=== PATIENT | female | born 1990 | race Caucasian/White ===

== ENCOUNTER → 2017-03-21 | Outpatient (CLI) | payer OTHER | END | disposition home or self-care (01) | LOC: C.PAPS 16:27 | PROVIDERS: ATTEND Obstetrics & Gynecology | DX: Z12.4 Encounter for screening for malignant neoplasm of cervix (principal) ==

== ENCOUNTER → 2017-03-21 | Outpatient (CLI) | payer OTHER ==
[2017-03-21 14:41] LABS: BASO % 0.2 %; BASO ABS # 0.02 K/uL (0-0.2); EOS ABS # 0.18 K/uL (0-0.5); HEMATOCRIT 42.7 % (37-47); IG# 0.03 K/uL (0.00-0.02); LYMPH % 31.7 %; LYMPH ABS # 2.89 K/uL (1.2-3.4); MEAN CELL VOLUME 89.7 fL (80-100); MEAN CORPUSCULAR HEMOGLOBIN 31.5 pg (25-34); MEAN CORPUSCULAR HGB CONC 35.1 g/dl (32-36); MEAN PLATELET VOLUME 11.8 fL (7.4-10.4); MONO % 5.7 %; MONO ABS # 0.52 K/uL (0.11-0.59); NEUT % 60.1 %; NEUT ABS # 5.49 K/uL (1.4-6.5); PLATELET COUNT 206 K/uL (130-400); RED CELL DISTRIBUTION WIDTH CV 12.8 % (11.5-14.5); RED CELL DISTRIBUTION WIDTH SD 41.3 fL (36.4-46.3); WHITE BLOOD COUNT 9.13 K/uL (4.8-10.8)
[2017-03-21 17:23] LABS: ALBUMIN 3.9 gm/dl (3.4-5.0); TOTAL PROTEIN 7.8 gm/dl (6.4-8.2)
== END | disposition home or self-care (01) ==
LOC: C.LAB1850 12:50
PROVIDERS: ATTEND Obstetrics & Gynecology
DX: Z34.91 Encounter for supervision of normal pregnancy, unspecified, first trimester (principal)

== ENCOUNTER → 2017-04-17 | Outpatient (CLI) | payer OTHER | END | disposition home or self-care (01) | LOC: C.LAB1850 09:50 | PROVIDERS: ATTEND Obstetrics & Gynecology | DX: O09.891 Supervision of other high risk pregnancies, first trimester (principal) ==

== ENCOUNTER → 2017-05-20 | Outpatient (CLI) | payer OTHER | END | disposition home or self-care (01) | LOC: C.LAB1850 16:05 | PROVIDERS: ATTEND Obstetrics & Gynecology | DX: Z34.82 Encounter for supervision of other normal pregnancy, second trimester (principal) ==

== ENCOUNTER → 2017-10-14 | Outpatient (CLI) | payer OTHER | END | disposition home or self-care (01) | LOC: C.LABSPEC 15:44 | PROVIDERS: ATTEND Obstetrics & Gynecology | DX: O09.893 Supervision of other high risk pregnancies, third trimester (principal) ==

== ENCOUNTER 2020-09-11 10:59 | Inpatient (IN) ==
[2020-09-11] MEDS ORDERED: LACTATED RINGER'S 1,000 ML IV PRN (11:06)
[2020-09-11] MEDS ORDERED: OXYTOCIN 30 UNITS/500 ML BAG IV PRN ×3 (11:06→18:08)
[2020-09-11 11:34] LABS: Hemoglobin 13.8 g/dL (12.0-16.0); Mean Corpuscular Hemoglobin 31.2 pg (25-34); Mean Corpuscular Hgb Conc 34.5 g/dL (32-36); Mean Corpuscular Volume 90.3 fL (80-100); Mean Platelet Volume 12.1 fL (7.4-10.4); Platelet Count 169 K/uL (130-400); RDW Coefficient of Variation 13.5 % (11.5-14.5); Red Blood Count 4.43 M/uL (4.2-5.4); White Blood Count 13.41 K/uL (4.8-10.8)
--- NOTE | 2020-09-11 13:37 | History & Physical Report ---
Date of Service September 11, 2020 Assessment & Plan (1) Supervision of normal intrauterine in multigravida: 30 y/o at 40 3/7 wga presenting for post-edc IOL VSS Fetus cat 1 labor - will start with pitocin and then arom GBS neg plans to go w/o epidural Admission and Anticipated Discharge Date Admission Date: September 11, 2020 History of Present Illness Chief Complaint: IOL Primary Care Provider: [facility] 30 y/o at 4 3/7 wga w/ HUSSEIN 09/08 by LMP 12/02 c/w 1st tri US presents for post-EDC IOL. 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 Surgical History H/O local excision of skin lesion H/O oral surgery Family History Father Dyslipidemia Hypertension Aunt Breast cancer maternal Grandmother Stroke Social History Smoking Status: Never smoker Hx Alcohol Use: No Hx Substance Use: No Preferred Language: [place] Beliefs That Will Affect Care: None marital status: marital status details: Kadeem (33) [phone] Current Living Situation: Spouse Current Living Situation Comment: lives with spouse, and 2 childen, no pets current occupational status: unemployed current occupation: homemaker Other Information That Helps Us Care for You: No Feels Safe at Home: Yes Safety Concerns: Feels Safe At This Time Assistive Devices: None Physical Exam Constitutional: WD/WN, vitals as above Respiratory: normal respiratory effort; no respiratory distress and no labored breathing Psychiatric: A+Ox3, euthymic affect Genitourinary: OB Exam Abdomen: + vertex and + estimated weight (7-8) Manual OB Exam: + cervical dilation 4 cm, + cervical effacement 50% and + station -2 OB Exam Monitor Tracing: + external FHT monitor used, + external uterine monitor used (irreg ctx) and + category I (145/mod/+accel/-decel) Results & Data ([facility]) Vital Signs (Past 12 Hours) Vital Signs Temp Pulse Resp BP 09/11/20 13:18 91 H 125/74 09/11/20 11:49 98.6 F 20 09/11/20 11:18 98.6 F 09/11/20 11:17 106 H 125/82 Laboratory Results OB Labs: Blood Type B Positive 02/01/20 Antibody Screen NEGATIVE 02/01/20 Hemoglobin 13.2 g/dL (12.0-16.0) 06/20/20 Hematocrit 38.9 % (37-47) 06/20/20 Mean Corpuscular Volume 88.0 fL (80-100) 02/01/20 Platelet Count 209 K/uL (130-400) 02/01/20 Rubella IgG Antibody Immune (Immune) 02/01/20 Rapid Plasma Reagin Nonreactive (Nonreactive) 02/01/20 Hepatitis B Surface Antigen Neg (Neg) 02/01/20 HIV (1&2) Ab and P24 Ag, 4th Gener Neg (Neg) 02/01/20 Glucose 1 Hour 50 gm Load 81 mg/dl (70-130) 06/20/20 OB Optional Labs: Chlamydia trachomatis RNA NOT DETECTED (NOT DETECTED) 02/01/20 Neisseria gonorrhoeae RNA NOT DETECTED (NOT DETECTED) 02/01/20 Labs Reviewed: declined genetic/cf/sma. akh declined QS--akh GBS neg--ak Diagnostic Findings Fundal plac Coding Level of Care Code None Diagnoses Supervision of normal intrauterine in multigravida Z34.80
--- NOTE | 2020-09-11 16:36 | Labor Progress Brief Note ---
Date of Service September 11, 2020 Subjective Feeling uncomfortable w/ some contractions Assessment & Plan (1) Supervision of normal intrauterine in multigravida: 30 y/o at 40 3/7 wga presenting for post-edc IOL VSS Fetus cat 1 labor - pit at 10, now s/p arom. Continue to monitor GBS neg plans to go w/o epidural Admission and Anticipated Discharge Date Admission Date: September 11, 2020 Physical Exam Genitourinary: Manual OB Exam: + cervical dilation (4-5), + cervical effacement 50%, + station -2 and + amniotic fluid (AROM clear) OB Exam M onitor Tracing: + external FHT monitor used, + external uterine monitor used (irreg ctx) and + category I (145/mod/+accel/-decel) Results & Data ([facility]) Vital Signs (Past 12 Hours) Vital Signs Temp Pulse Resp BP 09/11/20 16:29 83 155/67 H 09/11/20 14:54 75 127/70 09/11/20 13:18 91 H 125/74 09/11/20 11:49 98.6 F 20 09/11/20 11:18 98.6 F 20 09/11/20 11:17 106 H 125/82 Coding Level of Care Code None Diagnoses Supervision of normal intrauterine in multigravida Z34.80
--- NOTE | 2020-09-11 17:33 | Delivery Summary ---
Vaginal Delivery Summary Date of Service September 11, 2020 PREOPERATIVE DIAGNOSIS: 1. Single intrauterine at 40 3/7 wga 2. Post EDC IOL POSTOPERATIVE DIAGNOSIS: 1. Single intrauterine at 40 3/7 wga 2. Post EDC IOL 3. Delivered PROCEDURE: 1. Normal spontaneous vaginal delivery. SURGEON: Francisca Herbert MD ANESTHESIA: None ESTIMATED BLOOD LOSS: 300 mL FLUIDS: Continuous LR. URINE OUTPUT: None. COMPLICATIONS: None. CONDITION: Stable. INDICATIONS: 30 y/o at 40 3/7 wga presented for post-edc IOL today. +FM, denied regular ctx, LOF, VB. She was started on oxytocin. She underwent AROM at 5cm and rapidly progressed to complete and desired to push in under 1 hour FINDINGS: A viable female infant with Apgars of 9 and 9 at 1 and 5 minutes respectively. SPECIMEN: Cord blood OPERATIVE REPORT: The patient progressed to 10 cm, 100% effaced and +2 station, pushed over intact perineum with anesthesia to deliver a viable female infant, Apgars as above. Head of delivered in SETH position. No nuchal cord was present. Body and shoulders were delivered without difficulty. was deli jen to maternal abdomen and nursing staff. Delayed cord clamping was performed for 60 seconds. Cord was clamped and cut. Cord blood was obtained. Placenta delivered spontaneously intact with 3-vessel cord. IV oxytocin and fundal massage were given for excellent hemostasis. Vagina, cervix, perineum, and placenta were inspected. No lacerations were noted. Sponge and needle counts correct x2. No sponges were left behind. Mother and stable in immediate period. Vaginal Delivery Summary [facility] Vaginal Delivery Charge Vaginal Delivery Codes: 09409 global code for the antepartum, delivery, and post- Delivery Type Details: [facility]
[2020-09-11] MEDS ORDERED: bisacodyL 10 MG SUPP PR PRN (18:08)
[2020-09-11] MEDS ORDERED: ACETAMINOPHEN 325 MG TAB PO PRN (18:08)
[2020-09-11] MEDS ORDERED: BENZOCAINE 20% AER SPR 82.5 GM CAN EXT PRN (18:08)
[2020-09-11] MEDS ORDERED: DIPHTHERIA/TETANUS/PERTUSSIS 0.5 ML SYR/VIAL IM ONE (18:08)
[2020-09-11] MEDS ORDERED: SUPERCREAM 0.870% 15 GM JAR EXT PRN (18:08)
[2020-09-11] MEDS ORDERED: HYDROCORTISONE ACETATE 25 MG SUPP PR PRN (18:08)
[2020-09-11] MEDS: DOCUSATE SODIUM 100 MG CAP PO SCH (20:36)
[2020-09-11] MEDS: IBUPROFEN 600 MG TAB PO PRN (21:01)
[2020-09-12] MEDS: IBUPROFEN 600 MG TAB PO PRN ×2 (02:32→12:58)
--- NOTE | 2020-09-12 05:43 | Obstetrical Progress Note ---
Date of Service <Laureen Pacheco DO - Last Filed: 09/12/20 06:45> September 12, 2020 Assessment & Plan <Laureen Pacheco DO - Last Filed: 09/12/20 06:45> (1) Encounter for care and examination after delivery: 30 yo mother day #1 following term . No complications during delivery, and no complications. Doing well and without complaints. . Voiding and ambulating. Desires discharge at 24 hours if baby cleared by Pediatrics. Day #:: 1 Subjective <Laureen Pacheco DO - Last Filed: 09/12/20 06:45> Ambulation: ambulating normally Voiding: no voiding problems Passing Gas:: Yes Diet Tolerance:: regular diet Lochia:: Small Feeding Type:: breast feeding 30 yo mother doing well and without complaints. without difficulty. Ambulating and voiding. Review of Systems Constitutional: denies fever, chills, sweats, headache Respiratory: denies SOB, difficulty breathing Cardiac: denies CP, chest palpitations, chest pressure Breast: denies breast pain : denies dysuria Physical Exam <Laureen Pacheco DO - Last Filed: 09/12/20 06:45> General: patient is alert and oriented, in NAD Cardiac: +S1/S2, no murmurs rubs or gallops Respiratory: lungs CTA b/l, anteriorly and posteriorly, no wheezes rales or rhonchi, no increased work of breathing, symmetric chest rise, no respiratory distress Abdomen: soft, +bowel sounds Uterus: uterine fundus firm, palpable below the umbilicus Lower Extremities: trace LE edema (chronic prior to per patient), no deep calf pain, Devon's sign negative b/l Results & Data ([facility]) <Laureen Pacheco DO - Last Filed: 09/12/20 06:45> Vital Signs (Past 12 Hours) Vital Signs Temp Pulse Pulse Resp BP BP Pulse Ox 09/12/20 03:00 36.9 C 75 16 109/72 97 09/11/20 23:30 36.8 C 63 16 119/77 98 09/11/20 19:58 36.7 C 87 18 112/76 95 09/11/20 19:30 87 18 114/68 09/11/20 19:28 87 114/68 09/11/20 19:13 108 H 112/76 09/11/20 19:00 108 H 18 112/76 09/11/20 18:58 92 H 108/74 09/11/20 18:43 106/77 09/11/20 18:28 82 111/68 09/11/20 18:13 81 123/59 L 09/11/20 17:58 81 126/59 L <Francisca Herbert MD - Last Filed: 09/12/20 07:21> Co-Signing Physician Notes Resident Physician Supervision Note: I interviewed and examined the patient. Discussed with Dr. Pacheco and agree with findings and plan as documented in the note. Any exceptions or clarifications are listed here: PP1, meeting all milestones. Exam benign and wnl. Desires d/c home today, ok from OB standpoint after 24 hours but will await peds Documented By: Francisca Herbert MD Resident Activity Tracking <Laureen Pacheco DO - Last Filed: 09/12/20 06:45> Resident Involvement: Resident Care Provided Care Provided: OB Delivery
[2020-09-12 05:49] LABS: Hematocrit (blood only) 38.9 % (37-47); Hemoglobin 12.8 g/dL (12.0-16.0); Mean Corpuscular Hemoglobin 30.2 pg (25-34); Mean Corpuscular Hgb Conc 32.9 g/dL (32-36); Mean Corpuscular Volume 91.7 fL (80-100); Mean Platelet Volume 12.1 fL (7.4-10.4); Platelet Count 147 K/uL (130-400); RDW Coefficient of Variation 13.8 % (11.5-14.5); Red Blood Count 4.24 M/uL (4.2-5.4); White Blood Count 13.58 K/uL (4.8-10.8)
[2020-09-12] MEDS ORDERED: PRENATAL VITAMIN 1 TAB PO SCH (08:00)
[2020-09-12] MEDS: DOCUSATE SODIUM 100 MG CAP PO SCH (08:17)
[2020-09-12] MEDS ORDERED: bisacodyL 5 MG TABEC PO SCH (20:00)
== END 2020-09-12 19:55 | disposition home or self-care (01) | DRG 807 ==
LOC: 4S1 10:59 → 4S2 20:00